=== PATIENT | female | born 1955 | race Caucasian/White ===

== ENCOUNTER 2018-02-13 05:40 | Day surgery (SDC) | payer OTHER ==
[2018-02-13] MEDS ORDERED: MIDAZOLAM 1 MG/ML 2 ML INJ ×2 (08:12)
[2018-02-13] MEDS ORDERED: FENTAnyl 50 MCG/ML VIAL (08:12)
== END 2018-02-13 16:08 | disposition home or self-care (01) ==
LOC: GIL 05:40
DX: K44.9 Diaphragmatic hernia without obstruction or gangrene (principal); K21.9 Gastro-esophageal reflux disease without esophagitis
CPT/HCPCS: 43239; 88305; 88312

== ENCOUNTER 2018-03-23 06:04 | Day surgery (SDC) | payer OTHER ==
[2018-03-23] MEDS ORDERED: MIDAZOLAM 1 MG/ML 2 ML INJ ×3 (09:06→09:07)
[2018-03-23] MEDS ORDERED: FENTAnyl 50 MCG/ML VIAL (09:07)
== END 2018-03-23 12:32 | disposition home or self-care (01) ==
LOC: GIL 06:04
DX: R19.4 Change in bowel habit (principal); K64.8 Other hemorrhoids
CPT/HCPCS: 45378